=== PATIENT | male | born 1965 | race Caucasian/White ===

== ENCOUNTER 2017-02-27 15:35 | Emergency (ER) | payer BC ==
[~2017-02-27] VITALS: Ht 177.8 cm; Wt 95.5 kg
[2017-02-27 15:36] VITALS: BP 167/98; TEMP 97.8
[2017-02-27] MEDS ORDERED: CEPHALEXIN500 M1 PO (16:08)
[2017-02-27] MEDS ORDERED: ULTRAM 50MG TAB50 MG PO (16:15)
[2017-02-27] MEDS ORDERED: LEVAQUIN 750MG750 M1 PO (16:15)
[2017-02-27 16:27] VITALS: PULSE 70
== END 2017-02-27 16:28 | disposition home or self-care (01) ==
LOC: COL.ER 15:35
DX: L03.115 Cellulitis of right lower limb (principal)

== ENCOUNTER 2017-03-03 14:57 | Emergency (ER) | payer BC ==
[~2017-03-03] VITALS: Ht 177.8 cm; Wt 95.5 kg
[~2017-03-03 14:57] MED LIST: CEPHALEXIN500 M1 PO; LEVAQUIN 750MG750 M1 PO; ULTRAM 50MG TAB50 MG PO
[2017-03-03 14:59] VITALS: BP 140/102; TEMP 98
[2017-03-03 15:32] LABS: BASO # 0.1 (0.0-0.2); BASO % 0.8 % (0.0-2.0); EOS # 0.2 (0.0-0.7); EOS % 2.6 % (0-4.0); GRAN # 3.8 (1.4-6.5); GRAN % 58.5 % (42.2-75.2); HEMATOCRIT 44.8 % (42.0-52.0); HEMOGLOBIN 15.5 g/dl (13.5-18.0); LYMPH # 1.8 (1.2-3.4); LYMPH % 27.3 % (20.0-51.0); MEAN CELL VOLUME 89 fl (80.0-100.0); MEAN CORPUSCULAR HEMOGLOBIN 31 pg (27.0-31.0); MEAN CORPUSCULAR HGB CONC 35 g/dl (33.0-37.0); MEAN PLATELET VOLUME 8.9 fl (7.4-10.4); MONO # 0.7 (0.1-0.6); PLATELET COUNT 269 K/mm3 (130-400); RED BLOOD COUNT 5.03 M/mm3 (4.20-5.60); REDCELL DISTRIBUTION WIDTH-CV 13.2 % (11.5-14.5); WHITE BLOOD COUNT 6.5 K/mm3 (4.8-10.8)
[2017-03-03 15:44] LABS: ADJUSTED CALCIUM 9.1 mg/dL (8.4-10.2); ALBUMIN 4.5 gm/dL (3.5-5.0); BILIRUBIN,TOTAL 0.5 mg/dL (0.0-1.0); C-REACTIVE PROTEIN 1.3 mg/dL (0.0-0.9); CALCIUM 9.5 mg/dL (8.4-10.2); POTASSIUM 4.3 mmol/L (3.4-5.0); TOTAL PROTEIN 8.1 gm/dL (6.4-8.2)
[2017-03-03 15:51] LABS: ERYTHROCYTE SEDIMENTATION RATE 21 mm/hr (0-30)
[2017-03-03] MEDS ORDERED: CEPHALEXIN500 M1 PO (16:02)
[2017-03-03 16:18] VITALS: PULSE 85
== END 2017-03-03 16:18 | disposition home or self-care (01) ==
LOC: COL.ER 14:57
PROVIDERS: Emergency Medicine
DX: L03.115 Cellulitis of right lower limb (principal); F17.220 Nicotine dependence, chewing tobacco, uncomplicated

== ENCOUNTER 2022-10-19 15:08 | Outpatient (RCR) | payer BC ==
[~2022-10-19 15:08] MED LIST changes: +ASPIRIN E.C. 8181 MG PO; +BRILINTA90 MG PO; +LIPITOR 80MG80 MG PO; +NITROSTAT0.4 MG/TAB SL; +PRINIVIL10 MG PO; +TOPROL XL 25MG25 MG PO
== END 2022-10-23 | disposition home or self-care (01) ==
LOC: COL.CR
DX: Z48.812 Encounter for surgical aftercare following surgery on the circulatory system (principal); Z95.5 Presence of coronary angioplasty implant and graft

== ENCOUNTER 2022-11-16 15:23 | Outpatient (RCR) | payer BC | END 2022-11-23 | disposition home or self-care (01) | LOC: COL.CR | DX: Z48.812 Encounter for surgical aftercare following surgery on the circulatory system (principal); Z95.5 Presence of coronary angioplasty implant and graft ==

== ENCOUNTER → 2022-11-26 | Outpatient (CLI) | payer BC | LOC: COL.RAD 07:38 | DX: M19.071 Primary osteoarthritis, right ankle and foot (principal); M20.21 Hallux rigidus, right foot | CPT/HCPCS: J3301; Q9967 ==

== ENCOUNTER 2022-12-21 15:44 | Outpatient (RCR) | payer BC | END 2022-12-23 | disposition home or self-care (01) | LOC: COL.CR | DX: Z48.812 Encounter for surgical aftercare following surgery on the circulatory system (principal); Z95.5 Presence of coronary angioplasty implant and graft ==

== ENCOUNTER 2023-01-18 14:06 | Outpatient (RCR) | payer BC | END 2023-01-23 | disposition home or self-care (01) | LOC: COL.CR | DX: Z48.812 Encounter for surgical aftercare following surgery on the circulatory system (principal); Z95.5 Presence of coronary angioplasty implant and graft ==